=== PATIENT | male | born 1970 | race Caucasian/White ===

== ENCOUNTER 2017-04-13 18:29 | Inpatient (IN) | payer SELFPAY ==
[~2017-04-13] VITALS: Ht 167.6 cm; Wt 69.6 kg
[2017-04-13 19:45] LABS: HEMATOCRIT 41.7 % (42.0-52.0); HEMOGLOBIN 14.5 g/dl (13.5-18.0); MEAN CELL VOLUME 89 fl (80.0-100.0); MEAN CORPUSCULAR HEMOGLOBIN 31 pg (27.0-31.0); MEAN CORPUSCULAR HGB CONC 35 g/dl (33.0-37.0); MEAN PLATELET VOLUME 10.8 fl (7.4-10.4); PLATELET COUNT 131 K/mm3 (130-400); RED BLOOD COUNT 4.69 M/mm3 (4.20-5.60)
[2017-04-13 19:53] LABS: WHITE BLOOD COUNT 28.8 K/mm3 (4.8-10.8)
[2017-04-13 19:54] LABS: ADD PATHOLOGY DIFF REVIEW NO
[2017-04-13 19:57] LABS: ADJUSTED CALCIUM 8.8 mg/dL (8.4-10.2); BILIRUBIN,TOTAL 0.4 mg/dL (0.0-1.0); C-REACTIVE PROTEIN 1.3 mg/dL (0.0-0.9); CREATININE, serum 1.04 mg/dL (0.66-1.25); TOTAL PROTEIN 6.2 gm/dL (6.4-8.2)
[2017-04-13 20:10] LABS: ANISOCYTOSIS 1+; BAND 1 % (0-10); LYMPHOCYTE 64 % (20.0-51.0); NEUTROPHILS 30 % (42.0-75.2); POIKILOCYTOSIS 1+; ROULEAUX 1+; TOTAL CELLS COUNTED 100
[2017-04-13 20:19] LABS: COLLECTION METHOD CLEAN CATCH
[2017-04-13 20:27] LABS: MUCOUS Present /lpf; PH 6 (5-8); SQUAMOUS EPITHELIAL 0-2 /hpf; URINE APPEARANCE Clear; URINE BACTERIA None Seen /hpf; URINE BILIRUBIN Negative (NEGATIVE); URINE BLOOD 1+ (NEGATIVE); URINE COLOR Yellow; URINE GLUCOSE Negative (NEGATIVE); URINE KETONE Trace (NEGATIVE); URINE LEUKOCYTE ESTERASE Negative (NEGATIVE); URINE PROTEIN(semi-quant) 2+ (NEGATIVE); URINE UROBILINOGEN >=4.0 mg/dL (NEGATIVE); URINE WBC 0-2 /hpf
[2017-04-13 22:02] LABS: PROTHROMBIN TIME 10.6 SECONDS (9.7-12.8)
[2017-04-13 22:04] LABS: PARTIAL THROMBOPLASTIN TIME 30.4 SECONDS (26.0-37.0)
[2017-04-13 22:11] LABS: AMPHETAMINE URINE NEGATIVE; BARBITURATES URINE NEGATIVE; BENZODIAZEPINES URINE NEGATIVE; BUPRENORPHINE URINE NEGATIVE; METHADONE URINE NEGATIVE; OPIATES URINE NEGATIVE; OXYCODONE URINE NEGATIVE; PHENCYCLIDINE URINE NEGATIVE; PROPOXYPHENE URINE NEGATIVE; THC CANNABINOIDS URINE POSITIVE; TRICYCLIC ANTIDEPRESS URINE NEGATIVE
[2017-04-13 22:26] LABS: HIV 1/2 Antibodies Non-Reactive; HIV-1p24 Antigen Non-Reactive
[2017-04-13 22:31] LABS: TROPONIN-I 0.016 ng/mL (0.000-0.034)
[2017-04-14 02:43] VITALS: BP 137/72; PULSE 93; TEMP 98.7
[2017-04-14 07:37] LABS: HEMATOCRIT 39.8 % (42.0-52.0); HEMOGLOBIN 13.4 g/dl (13.5-18.0); MEAN CELL VOLUME 91 fl (80.0-100.0); MEAN CORPUSCULAR HEMOGLOBIN 31 pg (27.0-31.0); MEAN CORPUSCULAR HGB CONC 34 g/dl (33.0-37.0); MEAN PLATELET VOLUME 10.9 fl (7.4-10.4); PLATELET COUNT 164 K/mm3 (130-400); RED BLOOD COUNT 4.37 M/mm3 (4.20-5.60)
[2017-04-14 07:39] LABS: ADD PATHOLOGY DIFF REVIEW NO
[2017-04-14 07:42] LABS: ADJUSTED CALCIUM 8.6 mg/dL (8.4-10.2); ALBUMIN 2.5 gm/dL (3.5-5.0); BILIRUBIN,TOTAL 0.4 mg/dL (0.0-1.0); CALCIUM 7.4 mg/dL (8.4-10.2); CREATININE, serum 0.83 mg/dL (0.66-1.25); POTASSIUM 4.3 mmol/L (3.4-5.0); TOTAL PROTEIN 5.4 gm/dL (6.4-8.2)
[2017-04-14 08:41] VITALS: BP 126/72; PULSE 95
[2017-04-14 09:21] VITALS: TEMP 98.3
[2017-04-14 09:43] LABS: BAND 24 % (0-10); LYMPHOCYTE 61 % (20.0-51.0); NEUTROPHILS 14 % (42.0-75.2); PLATELET ESTIMATE NORMAL (NORMAL); TOTAL CELLS COUNTED 100
[2017-04-14 11:31] VITALS: BP 137/88; PULSE 89; TEMP 97.1
[2017-04-14 16:18] VITALS: BP 149/92; PULSE 89; TEMP 98
[2017-04-14 20:00] VITALS: BP 130/85; PULSE 83; TEMP 98.1
[2017-04-15 00:35] VITALS: PULSE 88
[2017-04-15 03:13] VITALS: BP 143/86; PULSE 90; TEMP 98.1
[2017-04-15 08:12] VITALS: BP 130/71; PULSE 93; TEMP 98
[2017-04-15 09:40] LABS: HEMATOCRIT 43.1 % (42.0-52.0); HEMOGLOBIN 14.5 g/dl (13.5-18.0); MEAN CELL VOLUME 90 fl (80.0-100.0); MEAN CORPUSCULAR HEMOGLOBIN 30 pg (27.0-31.0); MEAN CORPUSCULAR HGB CONC 34 g/dl (33.0-37.0); MEAN PLATELET VOLUME 10.4 fl (7.4-10.4); PLATELET COUNT 127 K/mm3 (130-400)
[2017-04-15 09:41] LABS: WHITE BLOOD COUNT 25.3 K/mm3 (4.8-10.8)
[2017-04-15 09:42] LABS: ADD PATHOLOGY DIFF REVIEW NO
[2017-04-15 09:57] LABS: ADJUSTED CALCIUM 8.8 mg/dL (8.4-10.2); ALBUMIN 2.8 gm/dL (3.5-5.0); BILIRUBIN,TOTAL 0.6 mg/dL (0.0-1.0); CALCIUM 7.8 mg/dL (8.4-10.2); CREATININE, serum 0.82 mg/dL (0.66-1.25); POTASSIUM 4.1 mmol/L (3.4-5.0); TOTAL PROTEIN 5.9 gm/dL (6.4-8.2)
[2017-04-15 10:17] LABS: BAND 25 % (0-10); LYMPHOCYTE 68 % (20.0-51.0); NEUTROPHILS 6 % (42.0-75.2); PLATELET ESTIMATE NORMAL (NORMAL); TOTAL CELLS COUNTED 100
[2017-04-15 11:05] VITALS: BP 139/90; BP 157/90; PULSE 96; TEMP 96.8
[2017-04-15 17:06] VITALS: BP 140/94; PULSE 90; TEMP 99
[2017-04-15 19:28] VITALS: BP 145/89; PULSE 98; TEMP 98.8
[2017-04-16] VITALS (7 sets, daily range): BP systolic 122–146; BP diastolic 71–93; PULSE 78–92; TEMP 97.7–98.3
[2017-04-16 10:14] LABS: HEMATOCRIT 43.4 % (42.0-52.0); HEMOGLOBIN 14.7 g/dl (13.5-18.0); MEAN CELL VOLUME 90 fl (80.0-100.0); MEAN CORPUSCULAR HEMOGLOBIN 31 pg (27.0-31.0); MEAN CORPUSCULAR HGB CONC 34 g/dl (33.0-37.0); MEAN PLATELET VOLUME 10.6 fl (7.4-10.4); PLATELET COUNT 145 K/mm3 (130-400)
[2017-04-16 10:22] LABS: WHITE BLOOD COUNT 20.6 K/mm3 (4.8-10.8)
[2017-04-16 10:25] LABS: ADJUSTED CALCIUM 8.9 mg/dL (8.4-10.2); BILIRUBIN,TOTAL 0.5 mg/dL (0.0-1.0); CALCIUM 8.1 mg/dL (8.4-10.2); CREATININE, serum 0.87 mg/dL (0.66-1.25); POTASSIUM 4.3 mmol/L (3.4-5.0); TOTAL PROTEIN 6.2 gm/dL (6.4-8.2)
[2017-04-16 11:19] LABS: BAND 8 % (0-10); NEUTROPHILS 33 % (42.0-75.2); TOTAL CELLS COUNTED 100
[2017-04-16 11:20] LABS: PLATELET ESTIMATE NORMAL (NORMAL)
[2017-04-16 11:23] LABS: LYMPHOCYTE 56 % (20.0-51.0)
[2017-04-16 11:24] LABS: ADD PATHOLOGY DIFF REVIEW YES
[2017-04-16] MEDS ORDERED: NICODERM C21 MG/PATC TD (14:18)
[2017-04-16] MEDS ORDERED: LEVAQUIN 750MG750 M1 PO (14:19)
[2017-04-17 08:08] LABS: PATHOLOGY DIFF REVIEW OK +
[2017-04-18 11:03] LABS: LYMPHOMA PANEL FLOW CYTO CD2 XXX; LYMPHOMA PANEL FLOW CYTO CD20 XXX; LYMPHOMA PANEL FLOW CYTO CD23 XXX; LYMPHOMA PANEL FLOW CYTO CD56 XXX; LYMPHOMA PANEL FLOW CYTO CD8 XXX; LYMPHOMA PANEL T CELL TOTAL XXX
[2017-04-18 11:04] LABS: LYMPHOMA PANEL FLOW CYTO CD11C XXX; LYMPHOMA PANEL FLOW CYTO CD45 XXX; LYMPHOMA PANEL FLOW CYTO CD5 XXX
[2017-04-18 11:07] LABS: LYMPHOMA PANEL FLOW CYTO CD10 XXX; LYMPHOMA PANEL FLOW CYTO CD4 XXX
[2017-04-18 11:08] LABS: LYMPHOMA PANEL FLOW CYTO CD103 XXX; LYMPHOMA PANEL FLOW CYTO CD16 XXX; LYMPHOMA PANEL FLOW CYTO CD19 XXX; LYMPHOMA PANEL FLOW CYTO CD25 XXX; LYMPHOMA PANEL FLOW CYTO CD7 XXX; LYMPHOMA PANEL FLOW CYTO FMC7 XXX; LYMPHOMA PANEL HLA-DR FLOW CY XXX; LYMPHOMA PANEL SUR-KAP FC XXX; LYMPHOMA PANEL SUR-LAM FC XXX
== END 2017-04-16 18:00 | disposition home or self-care (01) | DRG 816 ==
LOC: COL.ER 18:29 → MEDICAL 21:34
PROVIDERS: Emergency Medicine; Internal Medicine; Nurse Practitioner Family; Pathology Anatomic Pathology & Clinical Pathology
PROC: 07DR3ZX Extraction of Iliac Bone Marrow, Percutaneous Approach, Diagnostic (ICD-10-PCS; principal; 2017-04-16 08:30)
DX: D72.820 Lymphocytosis (symptomatic) (principal); F17.210 Nicotine dependence, cigarettes, uncomplicated; J32.9 Chronic sinusitis, unspecified; J01.91 Acute recurrent sinusitis, unspecified; R74.8 Abnormal levels of other serum enzymes; J44.9 Chronic obstructive pulmonary disease, unspecified; F41.9 Anxiety disorder, unspecified; F32.9 Major depressive disorder, single episode, unspecified; R50.9 Fever, unspecified; R61 Generalized hyperhidrosis; Z80.7 Family history of other malignant neoplasms of lymphoid, hematopoietic and related tissues; Z80.6 Family history of leukemia
CPT/HCPCS: 99223-AI; 99233-AI; 99239; J1956; J2704; J7030; J7050; Q9967